=== PATIENT | female | born 1995 | race Two or more races ===

== ENCOUNTER 2021-07-29 21:54 | Emergency (ER) | payer SELFPAY ==
[~2021-07-29] VITALS: Ht 165.1 cm; Wt 63.5 kg
[2021-07-29 21:55] VITALS: BP 199/118
== END 2021-07-30 07:02 | disposition left against medical advice (07) ==
LOC: ER 21:56
DX: R07.89 Other chest pain (principal); R06.02 Shortness of breath; Z53.21 Procedure and treatment not carried out due to patient leaving prior to being seen by health care provider
CPT/HCPCS: 93005